=== PATIENT | male | born 1965 | race Two or more races ===

== ENCOUNTER → 2021-03-17 | Day surgery (SDC) | payer OTHER | END | disposition home or self-care (01) | LOC: ADM 03-16 13:30 → AMB-ENDOS 10:35 | PROVIDERS: ATTEND Colon & Rectal Surgery | DX: K62.89 Other specified diseases of anus and rectum (principal); Z20.822 Contact with and (suspected) exposure to COVID-19; Z12.11 Encounter for screening for malignant neoplasm of colon ==